=== PATIENT | female | born 1950 | race Caucasian/White ===

== ENCOUNTER 2016-05-28 12:58 | Emergency (ER) | payer MEDICARE, OTHER ==
[~2016-05-28] VITALS: Ht 165.1 cm; Wt 111.0 kg
[~2016-05-28 12:58] MED LIST: ALBI1INJ SQ; DIAZ10TA PO; EPIP0.3I IM; ERGO1CAP10 PO; ESCI10TA PO; GABA300C5 PO; GLIM1TAB PO; HYDR25TA5 PO; IBUP200T2 PO; LEVO50TA4 PO; LISI40TA PO; LOVA40TA PO; METF1000 PO; MULT-135 PO
[2016-05-28 13:00] VITALS: BP 176/84; PULSE 108; RESP 18; TEMP 97.5; O2SAT 97
[2016-05-28 13:18] VITALS: BP 181/106; PULSE 106; RESP 18; O2SAT 96
[2016-05-28] MEDS ORDERED: SODIUM CHLORIDE 0.9% FLUSH 10 ML FLUSH IVF PRN (13:30)
--- NOTE | 2016-05-28 13:34 | PD ---
HPI Chief Complaint: Fall Time Seen by Provider: 13:29 Travel History International Travel<30 days: No Contact w/Intl Traveler<30days: No Traveled to known affect area: No History of Present Illness HPI Patient is a 66-year-old female presenting to the emergency room for to do a mechanical fall at approximate 9 AM. Patient states that she put lotion on her feet last night and when she went to get into her shower this morning she slipped, her legs went out and she fell onto her bottom. She denies any head injury or loss of consciousness. She reports pain in her right lower back that radiates down the back of her right leg. She went to an urgent care center this morning to be evaluated and was sent to the emergency department due to positive orthostatic vital signs. Patient denied any chest pain, shortness breath, dizziness prior to the fall. After the fall she states that she had to scoot herself out of the shower to her bed where she called her friend. Her friend and call 911 in order to get her up. Patient has been ambulatory since the fall. She continues to state that her legs feel shaky and she feels weak. She reports the pain in her lower back as a 7 out of 10 and states it's shooting and aching. Patient has not taken anything for the pain prior to arrival. Additionally patient has not taken any blood pressure medications or diabetes medications this morning. 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) AICD: No Endocrine Surgery: Yes (PARTIAL THYROIDECTOMY) Genitourinary Surgery: No Gynecologic Surgery: Yes (D&C) Joint Replacement: No Pacemaker: No Thoracic Surgery: Yes (CYST REMOVED FROM LEFT BREAST) Other Surgery: Yes (RIGHT ARM BELOW ELBOW AMPUTATION B/C OF GIANT CELL TUMOR.) Social History Alcohol Use: Yes (OCC) Tobacco Use: No Substance Use: No Allergies-Medications (Allergen,Severity, Reaction): Coded Allergies: Hytrin (Verified Allergy, Severe, PALPITATIONS / SOB, 05/28/16) PEANUTS (Verified Allergy, Severe, Anaphylaxis, 05/28/16) Reported Meds & Prescriptions Reported Meds & Active Scripts Active Reported Vitamin D (Ergocalciferol) 50,000 Unit Cap 50,000 Units PO Q7D Tanzeum 4-Pack Inj (Albiglutide) 30 Mg Pfpen 30 Mg SQ Q7D Multi Vitamin (Multiple Vitamin) 1 Tab Tab 1 Tab PO DAILY Metformin (Metformin HCl) 1,000 Mg Tab 1,000 Mg PO DAILY With a meal Lovastatin 40 Mg Tab 40 Mg PO DAILY Lisinopril 40 Mg Tab 40 Mg PO DAILY Levothyroxine (Levothyroxine Sodium) 50 Mcg Tab 50 Mcg PO DAILY Ibuprofen 200 Mg Tab 200 Mg PO Q4H PRN Hydrochlorothiazide 25 Mg Tab 25 Mg PO DAILY Glimepiride 1 Mg Tab 1 Mg PO DAILY Take with breakfast or first main meal Gabapentin 300 Mg Cap 300 Mg PO HS Escitalopram (Escitalopram Oxalate) 10 Mg Tab 10 Mg PO DAILY Epipen 2-Constantino Inj (Epinephrine) 0.3 Mg/0.3 Ml Pfpen 0.3 Mg IM ONCE PRN Diazepam 10 Mg Tab 10 Mg PO HS PRN Review of Systems Except as stated in HPI: all other systems reviewed are Neg Musculoskeletal: Positive: Myalgias, Pain Physical Exam Narrative GENERAL: Obese, well-developed, female. Resting comfortably in no acute distress. SKIN: Focused skin assessment warm/dry. HEAD: Atraumatic. Normocephalic. EYES: Pupils equal and round. No scleral icterus. No injection or drainage. ENT: No nasal bleeding or discharge. Mucous membranes pink and moist. NECK: Trachea midline. No JVD. CARDIOVASCULAR: Mildly tachycardic with a rate of 105. No murmur appreciated. RESPIRATORY: No accessory muscle use. Clear to auscultation. Breath sounds equal bilaterally. GASTROINTESTINAL: Abdomen soft, non-tender, nondistended. Hepatic and splenic margins not palpable. Positive bowel sounds, no rebound, no guarding. MUSCULOSKELETAL: No obvious deformities. No clubbing. No cyanosis. No edema. Right below the elbow amputation. 5/5 muscle strength in all 3 extremities. NEUROLOGICAL: Awake and alert. No obvious cranial nerve deficits. Motor grossly within normal limits. Normal speech. PSYCHIATRIC: Appropriate mood and affect; insight and judgment normal. Data Data Last Documented VS Vital Signs Date Time Temp Pulse Resp B/P Pulse Ox O2 Delivery O2 Flow Rate FiO2 05/28/16 14:07 96 167/78 104 178/82 105 181/83 05/28/16 13:56 96 05/28/16 13:18 18 Room Air 05/28/16 13:00 97.5 Orders Orthostatic Vital Signs (05/28/16 13:26) Electrocardiogram (05/28/16 13:26) Ckmb (Isoenzyme) Profile (05/28/16 13:26) Complete Blood Count With Diff (05/28/16 13:26) Comprehensive Metabolic Panel (05/28/16 13:26) Troponin I (05/28/16 13:26) Ecg Monitoring (05/28/16 13:26) Iv Access Insert/Monitor (05/28/16 13:26) Oximetry (05/28/16 13:26) Sodium Chloride 0.9% Flush (Ns Flush) (05/28/16 13:30) Sodium Chlorid 0.9% 500 Ml Inj (Ns 500 M (05/28/16 13:30) Enalaprilat Inj (Vasotec Inj) (05/28/16 13:30) CKMB (05/28/16 14:28) CKMB% (05/28/16 14:28) Chest, Single Ap (05/28/16 ) Labs Laboratory Tests Test 05/28/16 05/28/16 13:22 14:28 White Blood Count 11.1 TH/MM3 Red Blood Count 4.84 MIL/MM3 Hemoglobin 13.8 GM/DL Hematocrit 40.0 % Mean Corpuscular Volume 82.8 FL Mean Corpuscular Hemoglobin 28.5 PG Mean Corpuscular Hemoglobin 34.4 % Concent Red Cell Distribution Width 14.4 % Platelet Count 252 TH/MM3 Mean Platelet Volume 10.7 FL Neutrophils (%) (Auto) 79.0 % Lymphocytes (%) (Auto) 11.6 % Monocytes (%) (Auto) 6.2 % Eosinophils (%) (Auto) 2.7 % Basophils (%) (Auto) 0.5 % Neutrophils # (Auto) 8.8 TH/MM3 Lymphocytes # (Auto) 1.3 TH/MM3 Monocytes # (Auto) 0.7 TH/MM3 Eosinophils # (Auto) 0.3 TH/MM3 Basophils # (Auto) 0.1 TH/MM3 CBC Comment DIFF FINAL Differential Comment Sodium Level 140 MEQ/L Potassium Level 4.2 MEQ/L Chloride Level 105 MEQ/L Carbon Dioxide Level 27.4 MEQ/L Anion Gap 8 MEQ/L Blood Urea Nitrogen 13 MG/DL Creatinine 0.81 MG/DL Estimat Glomerular Filtration 71 ML/MIN Rate Random Glucose 129 MG/DL Calcium Level 8.7 MG/DL Total Bilirubin 0.4 MG/DL Aspartate Amino Transf 20 U/L (AST/SGOT) Alanine Aminotransferase 23 U/L (ALT/SGPT) Alkaline Phosphatase 53 U/L Total Creatine Kinase 116 U/L Creatine Kinase MB 1.0 NG/ML Troponin I LESS THAN 0.02 NG/ML Total Protein 6.8 GM/DL Albumin 3.0 GM/DL MDM Medical Decision Making Medical Screen Exam Complete: Yes Emergency Medical Condition: Yes Interpretation(s) Laboratory Tests Test 05/28/16 05/28/16 13:22 14:28 White Blood Count 11.1 TH/MM3 Red Blood Count 4.84 MIL/MM3 Hemoglobin 13.8 GM/DL Hematocrit 40.0 % Mean Corpuscular Volume 82.8 FL Mean Corpuscular Hemoglobin 28.5 PG Mean Corpuscular Hemoglobin 34.4 % Concent Red Cell Distribution Width 14.4 % Platelet Count 252 TH/MM3 Mean Platelet Volume 10.7 FL Neutrophils (%) (Auto) 79.0 % Lymphocytes (%) (Auto) 11.6 % Monocytes (%) (Auto) 6.2 % Eosinophils (%) (Auto) 2.7 % Basophils (%) (Auto) 0.5 % Neutrophils # (Auto) 8.8 TH/MM3 Lymphocytes # (Auto) 1.3 TH/MM3 Monocytes # (Auto) 0.7 TH/MM3 Eosinophils # (Auto) 0.3 TH/MM3 Basophils # (Auto) 0.1 TH/MM3 CBC Comment DIFF FINAL Differential Comment Sodium Level 140 MEQ/L Potassium Level 4.2 MEQ/L Chloride Level 105 MEQ/L Carbon Dioxide Level 27.4 MEQ/L Anion Gap 8 MEQ/L Blood Urea Nitrogen 13 MG/DL Creatinine 0.81 MG/DL Estimat Glomerular Filtration 71 ML/MIN Rate Random Glucose 129 MG/DL Calcium Level 8.7 MG/DL Total Bilirubin 0.4 MG/DL Aspartate Amino Transf 20 U/L (AST/SGOT) Alanine Aminotransferase 23 U/L (ALT/SGPT) Alkaline Phosphatase 53 U/L Total Creatine Kinase 116 U/L Creatine Kinase MB 1.0 NG/ML Troponin I LESS THAN 0.02 NG/ML Total Protein 6.8 GM/DL Albumin 3.0 GM/DL Vital Signs Date Time Temp Pulse Resp B/P Pulse Ox O2 Delivery O2 Flow Rate FiO2 05/28/16 13:18 106 18 181/106 96 Room Air 05/28/16 13:14 Room Air 05/28/16 13:00 97.5 108 18 176/84 97 Differential Diagnosis Orthostatic hypotension versus mechanical fall versus electrolyte abnormality versus other Narrative Course Patient is a 66-year-old female presenting to emergency Department for evaluation of positive orthostatic vital signs in urgent care center. Patient went to the urgent care center due to a mechanical fall at approximately 9 AM this morning. Imaging was performed there on her lumbar spine which is negative for acute fracture abnormality. Patient had no head injury or loss of consciousness. Patient was mildly tachycardic and hypertensive on arrival. She did not take her medications this morning. Patient will be given enalapril as well as a 500 cc bolus of normal saline. Labs and orthostatic vital signs ordered and pending. EKG shows sinus rhythm with a rate of 99. CBC is unremarkable Chemistry is unremarkable, troponin is negative less than 0.02. Orthostatic vital signs are not indicative of orthostatic hypotension. Chest x-ray shows no acute disease. Discussed with my attending physician. Patient was tachycardic on arrival, her heart rate is currently in the mid 90s. Patient reports feeling better. Patient will be discharged home with close follow-up with her primary care provider. Patient was advised to return to emergency department for any new or worsening symptoms. Patient was also advised to follow-up with her paint stripper. She was advised not to apply lotion to the bottom of her feet and then get in the shower. This could increase her risk of falls. Patient verbalized understanding of instructions. Patient stable for discharge. Diagnosis Primary Impression: Lumbar strain Qualified Code: S39.012A - Lumbar strain, initial encounter Additional Impression: Fall Qualified Code: W19.XXXA - Fall, initial encounter Referrals: Primary Care Physician 2 days Patient Instructions: Fall Prevention for Older Adults (ED), General Instructions Additional Instructions: Follow-up with her primary doctor Follow-up with her paint stripper Do not apply lotion to bottom of feet prior to getting in shower to prevent fall Return to emergency department for any new or worsening symptoms Med/Other Pt SpecificInfo: No Change to Meds Disposition: 01 DISCHARGE HOME Condition: Stable Suzanne Green [facility] May 28, 2016 13:34
[2016-05-28] MEDS: ENALAPRILAT 1.25 MG/ML VIAL IV PUSH ONE (13:55)
[2016-05-28 13:56] VITALS: O2SAT 96
[2016-05-28 13:56] LABS: AUTOMATED NEUTROPHIL # 8.8 TH/MM3 (1.8-7.7); BASOPHIL # 0.1 TH/MM3 (0-0.2); BASOPHIL % 0.5 % (0.0-2.0); EOSINOPHIL # 0.3 TH/MM3 (0-0.4); EOSINOPHIL % 2.7 % (0.0-4.0); HEMO FLAGS DIFF FINAL; LYMPH % 11.6 % (9.0-44.0); LYMPHOCYTE # 1.3 TH/MM3 (1.0-4.8); MEAN CELL VOLUME 82.8 FL (80.0-100.0); MEAN CORPUSCULAR HEMOGLOBIN 28.5 PG (27.0-34.0); MEAN CORPUSCULAR HGB CONC 34.4 % (32.0-36.0); MONO % 6.2 % (0.0-8.0); PLATELET COUNT 252 TH/MM3 (150-450); RED BLOOD COUNT 4.84 MIL/MM3 (4.00-5.30); RED CELL DISTRIBUTION WIDTH 14.4 % (11.6-17.2); WHITE BLOOD COUNT 11.1 TH/MM3 (4.0-11.0)
[2016-05-28] MEDS: SODIUM CHLORID 0.9% 500 ML INJ 500 ML IV ONE (13:56)
[2016-05-28 14:07] VITALS: BP_SYST 167; BP_SYST 178; BP_SYST 181; BP_DIAS 78; BP_DIAS 82; BP_DIAS 83
[2016-05-28 15:27] LABS: ALT (GPT) 23 U/L (10-53); ANION GAP 8 MEQ/L (5-15); AST (GOT) 20 U/L (15-37); BICARBONATE 27.4 MEQ/L (21.0-32.0); BLOOD UREA NITROGEN 13 MG/DL (7-18); CHLORIDE 105 MEQ/L (98-107); GLOMERULAR FILTRATION RATE 71 ML/MIN (>89); POTASSIUM 4.2 MEQ/L (3.5-5.1); SODIUM (NA) 140 MEQ/L (136-145)
[2016-05-28 15:31] LABS: ALKALINE PHOSPHATASE 53 U/L (45-117); CREATINE KINASE 116 U/L (26-192); TOTAL BILIRUBIN ADULT 0.4 MG/DL (0.2-1.0)
--- NOTE | 2016-05-28 15:56 | RADRPT ---
EXAM DATE/TIME: 05/28/2016 15:13 [facility] COMPARISON: CHEST PA & LAT, June 17, 2015, 10:55. INDICATIONS : Wheezing MEDICAL HISTORY : None relevant SURGICAL HISTORY : None ENCOUNTER: Initial ACUITY: Subacute PAIN SCORE: Unknown LOCATION: Lungs FINDINGS: A single view of the chest demonstrates the lungs to be symmetrically aerated without evidence of mas s, infiltrate or effusion. The cardiomediastinal contours are unremarkable. Osseous structures are intact. CONCLUSION: No acute disease. No significant change has occurred. Talat Naylor MD on May 28, 2016 at 15:53 Board Certified Radiologist. This report was verified electronically.
[2016-05-28 17:17] VITALS: BP 169/85; TEMP 98
--- NOTE | 2016-05-29 14:16 | EKG ---
Date Performed: 05/28/2016 Time Performed: 14:20:52 PTAGE: 66 years EKG: Sinus rhythm LOW QRS VOLTAGE IN PRECORDIAL LEADS Since previous tracing, no significant change noted BORDERLINE E CG PREVIOUS TRACING : 06/17/2015 10.39 DOCTOR: Rocío Johnston Interpretating Date/Time 05/29/2016 14:14:57
[2016-07-06] MEDS ORDERED: HYDR-3366 PO ×2 (12:51→12:52)
== END 2016-05-28 17:22 | disposition home or self-care (01) ==
LOC: NEPE 12:58
DX: S39.012A Strain of muscle, fascia and tendon of lower back, initial encounter (principal); R00.0 Tachycardia, unspecified; F41.9 Anxiety disorder, unspecified; F32.9 Major depressive disorder, single episode, unspecified; E78.00 Pure hypercholesterolemia, unspecified; I50.9 Heart failure, unspecified; E11.9 Type 2 diabetes mellitus without complications; I10 Essential (primary) hypertension; W18.30XA Fall on same level, unspecified, initial encounter
CPT/HCPCS: 71010; 80053; 82550; 82552; 84484; 85025; 93005; 96361; 96374; 99284; J7040

== ENCOUNTER → 2016-07-03 | Outpatient (CLI) | payer MEDICARE ==
[~2016-07-03] MED LIST changes: +HYDR-3366 PO
== END ==
LOC: CPRE 11:46
PROVIDERS: ATTEND Neurological Surgery
DX: Z01.812 Encounter for preprocedural laboratory examination (principal)

== ENCOUNTER → 2016-07-06 | Day surgery (SDC) | payer MEDICARE ==
--- NOTE | 2016-07-05 17:50 | MH ---
cc: VERITO KAPOOR M.D., ROHIT K. M.D. DATE OF ADMISSION 07/06/2016 ADMISSION DIAGNOSIS Lumbar spinal stenosis. HISTORY OF PRESENT ILLNESS This is a 66-year-old female who presented to us for an evaluation of pain in her legs that she has had on and off for 5 years but progressively getting worse over the last one to one and a half years. She states she cant walk or stand too long or the pain in the posterior thighs gets worse and she develops left leg weakness and has to sit down. She states she cannot walk 30 minutes before the legs get excruciatingly painful and she has to sit or she will fall. She said that she has to lift her left leg to get into the car. She denies any bowel or bladder incontinence but gets urgency. She had physical therapy 15 years ago but none recently. She states the pain in the posterior thighs is a stabbing type of pain. She has had pain management and has had four epidural steroid injections. She states her legs get numb with walking. PAST MEDICAL HISTORY Significant for diabetes mellitus, hypothyroidism, sleep apnea, hypertension, osteoarthritis, depression, hyperlipidemia. Amputation of her right forearm from a giant cell tumor in 1975. Removal of giant cell tumor from her right iliac crest and pelvis 1976. Partial thyroidectomy in 1986. D&C in 2015. CURRENT MEDICATIONS 1. Vitamin D 50,000 units p.o. q. 7 days. 2. Albiglutide 30 milligrams pen subcutaneous q. seven days. 3. Multivitamin daily. 4. Metformin 1000 milligrams p.o. daily. 5. Lovastatin 40 milligrams p.o. daily. 6. Lisinopril 40 milligrams p.o. daily. 7. Levothyroxine 50 micrograms p.o. daily. 8. Ibuprofen p.o. q.4 hours. This was placed on hold prior to surgical intervention. 9. Hydrochlorothiazide 25 milligrams p.o. daily. 10. Glimepiride p.o. daily. 11. Gabapentin 300 milligrams p.o. q. h.s. 12. Escitalopram 10 milligrams p.o. daily. 13. Diazepam 10 milligrams p.o. q. h.s. p.r.n. anxiety. ALLERGIES TO MEDICATIONS SHE IS ALLERGIC TO HYTRIN. FAMILY HISTORY Her father is at [id number], had dementia. Her mother is at [id number], had breast cancer. 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 She does not have children. She lives alone. She does not smoke. She drinks alcohol rarely, about 2 to 3 drinks per year. REVIEW OF SYSTEMS CONSTITUTIONAL: She denies any fever or chills. EARS/NOSE/THROAT: No sinus drainage, ear pain. Cardiovascular: No chest pain or palpitations. Respiratory: No cough. She has had shortness of breath in the last week, was evaluated in the emergency room and also by her primary care physician and felt not to be related to her heart but she had been taking twice as much thyroid medication than she was supposed to be taking, by accident. GENITOURINARY: No dysuria or hematuria MUSCULOSKELETAL: Positive for low back pain. SKIN: No rashes or pruritus. NEUROLOGIC: No difficulty with speech or memory. GASTROINTESTINAL: No nausea, vomiting, abdominal pain. PSYCHIATRIC: Positive for anxiety and depression. ENDOCRINE: Positive for polyuria, polydipsia. HEMATOLOGIC: No bruising or bleeding tendencies. PHYSICAL EXAMINATION HEAD: Normocephalic, atraumatic. NECK: Supple. No carotid bruits heard on auscultation. LUNGS: The lungs are clear to auscultation bilaterally. HEART: Regular rate and rhythm, normal S1-S2. ABDOMEN: Soft, nontender. Positive bowel sounds. SKIN: Reveals no cyanosis or erythema. MUSCULOSKELETAL: She has 3+/5 left iliopsoas, otherwise, her strength is 5/5 in the lower extremities. She ambulates without any assistive device for ambulation. NEUROLOGIC: She is awake, alert, oriented. Cranial nerves II-XII appear grossly intact. Speech is fluent. Comprehension is good. She has very diminished reflexes in the lower extremities. DATA REVIEWED Reviewed the MRI of the lumbar spine from March 28, 2016 which reveals severe L2-L3 spinal stenosis from a combination of disk protrusion and facet and ligamentum flavum hypertrophy. There is mild stenosis at the L1/L2 and L3/L4 levels with severe L4/L5 degenerate disk disease with disk height collapse and endplate changes. IMPRESSION A 66-year-old female with a chronic history of low back pain but more significant neurogenic claudication symptoms which limit her activity status. She has undergone physical therapy in the past as well as multiple bouts of interventional pain management with epidural steroid injections. She states that she cannot live with her current level discomfort and activity restriction at this point. She has severe L2-L3 spinal stenosis from facet and ligamentum flavum hypertrophy along with disk protrusion. She also has advanced L4/L5 degenerative disk disease with disk height collapse and endplate changes but states that she can live with her chronic back pain and neurogenic claudication symptoms bother her the most. PLAN We have discussed treatment options and we have recommended an L2-L3 decompressive laminectomy. The procedure as well as the risk, benefit, alternatives were discussed in detail with the patient. We have discussed the risks involved with surgery include but not limited to bleeding, infection, muscle weakness, voice hoarseness, difficulty swallowing, heart attack, stroke, blood clots, scar tissue formation, among others. The patient states that she understands the risks involved and she is wishing to proceed and she was therefore scheduled accordingly. Dictated by: Addison Mcclellan PA-C MD LETTY Elder/ERNESTO /5:01 PM /5:23 PM
[~2016-07-06] VITALS: Ht 162.6 cm; Wt 113.3 kg
[~2016-07-06] MED LIST changes: +ACETAMINOPHEN 1000 MG/100 ML VIAL IV ONE; +ARTIFICIAL TEARS OPTH OINT 3.5 APPLIC/3.5 GM TUBO ONE; +CHLORHEXIDINE GLUCONATE 2 % 1 PACK (2 CLOTHS) TOPICAL PRN; +DEXAMETHASONE SOD PHOS 4 MG/ML VIAL ONE; -DIAZ10TA PO; +DO NOT ADM ANY ANTICOAGULANT DRUGS PRN; +FAMOTIDINE 20 MG/2 ML VIAL ONE; +GELFOAM SIZE 100 ONE; +INSULIN HUMAN REGULAR 1,000 UNITS/10 ML VIAL SQ PRN; +LACTATED RINGER'S 1000 ML IV PRN; +METOPROLOL TARTRATE 25 MG TAB PO PRN; +MIDAZOLAM HCL 2 MG/2 ML VIAL ONE; +MORPHINE SULFATE 4 MG/ML INJ IV PUSH PRN; +ONDANSETRON HCL 4 MG/2 ML VIAL IV PUSH ONE; +ONDANSETRON HCL 4 MG/2 ML VIAL IV PUSH PRN; +POVIDONE IODINE 5% (ANTISEPSIS KIT) 4 APPLICATIONS EACH NARE PRN; +PROPOFOL 200 MG/20 ML AMP IV ONE; +SODIUM CHLOR 0.9% 1000 ML INJ 1,000 ML IV SCH; +SODIUM CHLORID 0.9% 500 ML IV PRN; +THROMBIN (TOPICAL) 5,000 UNIT VIAL ONE; +VANCOMYCIN HCL 1000 MG ON-CALL/NS 250 ML IV SCH; +VANCOMYCIN HCL 1000 MG VIAL ONE; +fentaNYL CITRATE 250 MCG/5 ML AMP ONE; +methylPREDNISolone ACETATE 40 MG/ML VIAL ONE
[2016-07-06 08:12] VITALS: BP 156/73; PULSE 89; RESP 16; TEMP 97.9; O2SAT 98
[2016-07-06] MEDS: BUPIVACAINE/EPINEPHRINE 0.5% 50 ML VIAL ONE ×2 (11:19→12:11)
--- NOTE | 2016-07-06 12:50 | PD.OP ---
MD Graciela Miller MD Operative Report Date of Surgery: July 06, 2016 Preoperative Diagnosis: Low back pain with neurogenic claudication; L2-3 facet and ligamentum flavum hypertrophy with associated spinal stenosis Postoperative Diagnosis: Same Procedure: Lumbar L2 and L3 decompressive laminectomies with medial facetectomies; microsurgical technique Anesthesia: Gen. endotracheal by Jayy Reyes Surgeon: Kelvin Lewis M.D. Healthcare Risk Control Consultant(s): Ashlee Varghese Operation and Findings: Following administration of general endotracheal anesthesia, patient received vancomycin 1 g intravenously. Sequential compression devices were placed for DVT prophylaxis. She was then turned in prone position on Ventura frame and the Chet table and all pressure points adequately padded. The lumbar region was then shaved and prepped with a Betadine and ChloraPrep. Sterile draping undertaken with Ioban. Midline incision overlying the L2-L3 level was then made after infiltrating the skin with 0.5% Marcaine with epinephrine solution. The skin incision was made extending down through the fascia and then using the subperiosteal plane on the left side the muscular attachments to the spinous process and lamina were detached. Intraoperative fluoroscopy was used for level confirmation and further dissection undertaken using microtechnique with microscope magnification. The inferior portion of the L2 and portion of the L3 lamina was then drilled out and the underlying ligamentum flavum also removed. There was facet arthropathy noted and the medial portion of facet was also resected and the lateral recess decompressed. With a gentle thecal sac or retractions of the left the laminotomy on the right hypertrophied ligamentum flavum and medial facet was also resected with Kerrisons and spinal canal circumferentially decompressed. Epidural venous stasis which he with the bipolar cautery along with Gelfoam and thrombin and bone wax used at the laminotomy edges for hemostasis. The area was then copiously irrigated with vancomycin solution. The retractors removed and the muscle fascia proximal using 2-0 Vicryl interrupted stitches. 3-0 Vicryl subcuticular stitches were also placed in an interrupted fashion and planned skin closure was with absorbable BioGlue. A sterile dressing was then applied and the patient then turned in the supine position and extubated and taken to recovery room in stable condition. There were no intraoperative complications and all sponge and needle count was correct at the end of the procedure. Estimated blood loss about 25 cc. Kelvin Lewis MD July 06, 2016 12:50
--- NOTE | 2016-07-06 12:59 | RADRPT ---
EXAM DATE/TIME: 07/06/2016 11:23 [facility] COMPARISON: No previous studies available for comparison. INDICATIONS : L2-L3 lumbar laminectomy. Level localization. MEDICAL HISTORY : None. SURGICAL HISTORY : None. ENCOUNTER: Initial ACUITY: 1 day PAIN SCORE: Non-responsive. LOCATION: Lumbar spine FINDINGS: FINDINGS: Single lateral view of the spine demonstrates the spine to be in anatomic alignment. A probe is in pl mila at the mid lumbar level. CONCLUSION: 1. Postsurgical changes as above. Esau Healy MD on July 06, 2016 at 12:57 Board Certified Radiologist. This report was verified electronically.
[2016-07-06] MEDS: ACETAMINOPHEN/HYDROcodone 325 MG/10 MG TAB PO PRN (13:43)
[2016-07-06 13:58] VITALS: BP 145/74; PULSE 95; RESP 16; TEMP 97.1; O2SAT 98
== END | disposition home or self-care (01) ==
LOC: HSDC 07:34
PROVIDERS: ATTEND Neurological Surgery
DX: M48.06 Spinal stenosis, lumbar region (principal); E11.9 Type 2 diabetes mellitus without complications; I10 Essential (primary) hypertension; E03.9 Hypothyroidism, unspecified; E78.5 Hyperlipidemia, unspecified
CPT/HCPCS: 00630; 63048; 72020; 76000; J0131; J1030; J1100; J2250; J2405; J3010; J3370; J7050; J7120

== ENCOUNTER 2017-08-06 12:55 | Emergency (ER) | payer MEDICARE ==
[~2017-08-06] VITALS: Ht 160 cm; Wt 114.0 kg
[~2017-08-06 12:55] MED LIST changes: -ACETAMINOPHEN 1000 MG/100 ML VIAL IV ONE; -ARTIFICIAL TEARS OPTH OINT 3.5 APPLIC/3.5 GM TUBO ONE; -CHLORHEXIDINE GLUCONATE 2 % 1 PACK (2 CLOTHS) TOPICAL PRN; -DEXAMETHASONE SOD PHOS 4 MG/ML VIAL ONE; -DO NOT ADM ANY ANTICOAGULANT DRUGS PRN; -FAMOTIDINE 20 MG/2 ML VIAL ONE; -GELFOAM SIZE 100 ONE; -IBUP200T2 PO; +IBUP200T47 PO; -INSULIN HUMAN REGULAR 1,000 UNITS/10 ML VIAL SQ PRN; -LACTATED RINGER'S 1000 ML IV PRN; -METOPROLOL TARTRATE 25 MG TAB PO PRN; -MIDAZOLAM HCL 2 MG/2 ML VIAL ONE; -MORPHINE SULFATE 4 MG/ML INJ IV PUSH PRN; -ONDANSETRON HCL 4 MG/2 ML VIAL IV PUSH ONE; -ONDANSETRON HCL 4 MG/2 ML VIAL IV PUSH PRN; -POVIDONE IODINE 5% (ANTISEPSIS KIT) 4 APPLICATIONS EACH NARE PRN; -PROPOFOL 200 MG/20 ML AMP IV ONE; -SODIUM CHLOR 0.9% 1000 ML INJ 1,000 ML IV SCH; -SODIUM CHLORID 0.9% 500 ML IV PRN; -THROMBIN (TOPICAL) 5,000 UNIT VIAL ONE; -VANCOMYCIN HCL 1000 MG ON-CALL/NS 250 ML IV SCH; -VANCOMYCIN HCL 1000 MG VIAL ONE; -fentaNYL CITRATE 250 MCG/5 ML AMP ONE; -methylPREDNISolone ACETATE 40 MG/ML VIAL ONE
[2017-08-06 13:06] VITALS: BP 158/67; PULSE 88; RESP 18; TEMP 98.1; O2SAT 97
--- NOTE | 2017-08-06 13:20 | PD ---
HPI Chief Complaint: Fall Time Seen by Provider: 13:04 Travel History International Travel<30 days: No Contact w/Intl Traveler<30days: No Traveled to known affect area: No History of Present Illness HPI She presents to the emergency department status post fall. She was at home and tripped on her foot and fell on her right side. Complaint of pain in right shoulder and right arm. She did not hit her head and there was no LOC. 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 She received 4 mg IV morphine and 300 mL of normal saline prior to ER arrival. Initially pain was 10 out of 10, now is 8 out of 10. Pain is described as being achy, nonradiating, and present in the shoulder humerus and elbow. 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) Neurologic: Yes (SPINAL STENSIS) Psychiatric: Yes Reproductive: Yes (PERIODIC heavy bleeding fibroids NOW RESOLVED) Respiratory: No Radiation Therapy: No Seizures: No Thyroid Disease: Yes (HYPO) Menopausal: Yes Past Surgical History 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) AICD: No Ear Surgery: No Endocrine Surgery: Yes (PARTIAL THYROIDECTOMY) Eye Surgery: No Genitourinary Surgery: No Gynecologic Surgery: Yes (D&C X2) Joint Replacement: No Pacemaker: No Thoracic Surgery: Yes (CYST REMOVED FROM LEFT BREAST) Other Surgery: Yes (BIOPSY OF RIGHT ILLIAC CREST) Social History Alcohol Use: Yes (OCC) Tobacco Use: No Substance Use: No Allergies-Medications (Allergen,Severity, Reaction): Coded Allergies: peanut (Unverified Allergy, Severe, Anaphylaxis, 08/06/17) terazosin (Unverified Allergy, Severe, PALPITATIONS / SOB, 08/06/17) Reported Meds & Prescriptions Reported Meds & Active Scripts Active Maple (Hydrocodone-Acetaminophen) 5 Mg-325 Mg Tab 1 Tab PO Q6H PRN 3 Days Reported Vitamin D3 (Cholecalciferol) 50,000 Unit Cap 50,000 Units PO Q7D Tradjenta (Linagliptin) 5 Mg Tab 5 Mg PO DAILY Multiple Vitamin 1 Tab 1 Tab PO DAILY Metformin (Metformin HCl) 1,000 Mg Tab 1,000 Mg PO BID With a meal Lovastatin 40 Mg Tab 40 Mg PO DAILY Lisinopril 40 Mg Tab 40 Mg PO DAILY Levothyroxine (Levothyroxine Sodium) 50 Mcg Tab 50 Mcg PO DAILY Ibuprofen 200 Mg Tab 200 Mg PO Q4H PRN Hydrochlorothiazide 25 Mg Tab 25 Mg PO DAILY Gabapentin 300 Mg Cap 100 Mg PO HS Escitalopram (Escitalopram Oxalate) 10 Mg Tab 10 Mg PO DAILY Epipen 2-Constantino Inj (Epinephrine) 0.3 Mg/0.3 Ml Pfpen 0.3 Mg IM ONCE PRN Review of Systems Except as stated in HPI: all other systems reviewed are Neg Physical Exam Narrative GENERAL: No acute distress. SKIN: Focused skin assessment warm/dry. HEAD: Atraumatic. Normocephalic. EYES: Pupils equal and round. No scleral icterus. No injection or drainage. ENT: No nasal bleeding or discharge. Mucous membranes pink and moist. NECK: Trachea midline. No JVD. CARDIOVASCULAR: Regular rate and rhythm. No murmur appreciated. RESPIRATORY: No accessory muscle use. Clear to auscultation. Breath sounds equal bilaterally. GASTROINTESTINAL: Abdomen soft, non-tender, obese. MUSCULOSKELETAL: Right upper extremity in sling. He did to palpation right shoulder right humerus right elbow. Below elbow amputee. Limited range of motion secondary to pain. NEUROLOGICAL: Awake and alert. No obvious cranial nerve deficits. Normal speech. PSYCHIATRIC: Appropriate mood and affect; insight and judgment normal. Data Data Last Documented VS Vital Signs Date Time Temp Pulse Resp B/P (MAP) Pulse Ox O2 Delivery O2 Flow Rate FiO2 08/06/17 15:41 103 16 144/93 (110) 100 Room Air 08/06/17 13:06 98.1 Orders Orders Humerus (Min 2vws) (08/06/17 13:13) Pelvis, Ap Only (Routine) (08/06/17 13:13) Shoulder, Limited(2vws) (08/06/17 13:13) Sling And Swathe (08/06/17 ) Morphine Inj (Morphine Inj) (08/06/17 15:15) Ed Discharge Order (08/06/17 15:46) MDM Medical Decision Making Medical Screen Exam Complete: Yes Emergency Medical Condition: Yes Interpretation(s) Last Impressions Shoulder X-Ray 08/06/17 1313 Signed Impressions: CONCLUSION: Fracturing of the proximal humerus at the surgical neck. Some subluxation or di slocation of the humeral head in relation to the glenoid could potentially be p resent. Pelvis X-Ray 08/06/17 1313 Signed Impressions: CONCLUSION: Degenerative and postoperative changes as above. No acute abnormality identifie d. Humerus X-Ray 08/06/17 1313 Impressions: CONCLUSION: Right surgical neck humeral fracture. The humeral head projects posterior to th e glenoid on the views provided. Differential Diagnosis Fracture, dislocation, contusion Narrative Course Patient presents to the emergency department complaining of right upper extremity pain secondary to fall. Denies LOC or hitting her head. Patient placed on lead machinist, IV access obtained, and x-rays of the right shoulder/ right humerus/right elbow/pelvis ordered. 1515: Sling and swab ordered. 4 Milligrams IV morphine ordered. Diagnosis Primary Impression: Humerus fracture Qualified Codes: S42.291A - Other displaced fracture of upper end of right humerus, initial encounter for closed fracture Referrals: Divya Chan MD Patient Instructions: Arm Fracture in Adults (ED), General Instructions Additional Instructions: 1. Meds as directed. 2. Follow-up with orthopedic doctor, Dr. Chan, in 24-48 hours. 3. Return to the ER for increased pain, swelling, numbness, color change in affected extremity, or for any new/worrisome/worsening symptoms. Scripts Hydrocodone-Acetaminophen (Maple) 5 Mg-325 Mg Tab 1 TAB PO Q6H Y for PAIN for 3 Days, #12 TAB 0 Refills Prov: Isis Taylor MD 08/06/17 Disposition: 01 DISCHARGE HOME Condition: Stable Isis Taylor MD Aug 06, 2017 13:20
[2017-08-06] MEDS ORDERED: TRAD5TAB PO (13:43)
[2017-08-06] MEDS ORDERED: CHOL1CAP34 PO (13:43)
[2017-08-06] MEDS ORDERED: MULTTAB67 PO (13:43)
--- NOTE | 2017-08-06 14:26 | RADRPT ---
EXAM DATE: 08/06/2017 2:01 PM EDT AGE/SEX: 67 years / Female INDICATIONS: Pelvic pain post fall. CLINICAL DATA: This is the patient's initial encounter. Patient reports that signs and symptoms have been present for 1 day and indicates a pain score of 10/10. MEDICAL/SURGICAL HISTORY: None. None. COMPARISON: No prior exams available for comparison. FINDINGS: There is irregularity of the iliac wing on the right most consistent with previous bone graft harvest ing site. There are degenerative changes within the hips bilaterally. The femoral heads are well situated withi n the acetabular fossa. There are mild degenerative changes in the lower lumbar spine and sacroiliac joints bilaterally. CONCLUSION: Degenerative and postoperative changes as above. No acute abnormality identified. Electronically signed by: Maynor Perla MD 08/06/2017 2:25 PM EDT
--- NOTE | 2017-08-06 14:37 | RADRPT ---
EXAM DATE: 08/06/2017 2:03 PM EDT AGE/SEX: 67 years / Female INDICATIONS: Right shoulder pain, fall. CLINICAL DATA: This is the patient's initial encounter. Patient reports that signs and symptoms have been present for 1 day and indicates a pain score of 10/10. MEDICAL/SURGICAL HISTORY: None. None. COMPARISON: [facility] – [place], CHEST SINGLE AP, 05/28/2016. . FINDINGS: There is a fracture at the surgical neck of the proximal humerus. It appears the humeral shaft is ant eriorly and proximally displaced. Humeral head appears to project posterior and superior to the gleno id on the oblique transscapular Y view. CONCLUSION: Fracturing of the proximal humerus at the surgical neck. Some subluxation or dislocation of the humer al head in relation to the glenoid could potentially be present. Electronically signed by: Roderick Jackson MD 08/06/2017 2:36 PM EDT
--- NOTE | 2017-08-06 15:01 | RADRPT ---
EXAM DATE: 08/06/2017 1:59 PM EDT AGE/SEX: 67 years / Female INDICATIONS: Right arm pain, fall. CLINICAL DATA: This is the patient's initial encounter. Patient reports that signs and symptoms have been present for 1 day and indicates a pain score of 10/10. MEDICAL/SURGICAL HISTORY: None. . Right below elbow amputation. COMPARISON: No prior exams available for comparison. FINDINGS: There is a fracture the proximal right humerus at the surgical neck. The humeral head appears project s somewhat posterior to the glenoid on the oblique view. The patient does appear to be status post am putation of the distal right arm at the proximal forearm level. The acromioclavicular joint is aligne d. CONCLUSION: Right surgical neck humeral fracture. The humeral head projects posterior to the glenoid on the views provided. Electronically signed by: Roderick Jackson MD 08/06/2017 2:59 PM EDT
[2017-08-06] MEDS ORDERED: MORPHINE SULFATE 4 MG/ML INJ IV PUSH ONE (15:15)
[2017-08-06 15:41] VITALS: BP 144/93; PULSE 103; RESP 16; O2SAT 100
[2017-08-06] MEDS ORDERED: NORC5TAB PO (15:47)
[2017-08-06 15:54] VITALS: BP 144/93
== END 2017-08-06 16:17 | disposition home or self-care (01) ==
LOC: NEPE 12:55
DX: S42.211A Unspecified displaced fracture of surgical neck of right humerus, initial encounter for closed fracture (principal); W01.0XXA Fall on same level from slipping, tripping and stumbling without subsequent striking against object, initial encounter; E03.9 Hypothyroidism, unspecified; E11.9 Type 2 diabetes mellitus without complications; E78.00 Pure hypercholesterolemia, unspecified; I11.0 Hypertensive heart disease with heart failure; I50.9 Heart failure, unspecified; F32.9 Major depressive disorder, single episode, unspecified; F41.9 Anxiety disorder, unspecified; Z89.201 Acquired absence of right upper limb, unspecified level; Z79.899 Other long term (current) drug therapy; Z79.84 Long term (current) use of oral hypoglycemic drugs
CPT/HCPCS: 29240; 72170; 73030; 73060; 96374; 99284; J2270